=== PATIENT | female | born 1990 | race Caucasian/White ===

== ENCOUNTER 2017-07-30 21:06 | Inpatient (IN) | payer OTHER ==
[2017-07-30 21:50] VITALS: BMI 36.6
[2017-07-30] MEDS: Lactated Ringer's 1,000 ML IV SCH (22:25)
[2017-07-30] MEDS ORDERED: LR / Pitocin 40 units/1000 ml 40 UNITS/1,000 ML BAG IV SCH (22:30)
[2017-07-30] MEDS ORDERED: Acetaminophen/Codeine 30-300mg Tablet PO PRN (22:30)
[2017-07-30] MEDS ORDERED: Lidocaine 1% (PF) 30 ML VIAL SC PRN (22:30)
[2017-07-30] MEDS ORDERED: Ibuprofen 800 MG TAB PO PRN (22:30)
[2017-07-30] MEDS ORDERED: Misoprostol 200 MCG TAB RC PRN (22:30)
[2017-07-30 22:41] LABS: Hemoglobin 10.9 g/dL (12.0-16.0); Mean Corpuscular HGB CONC 33.4 g/dL (32.0-36.0); Mean Corpuscular Hemoglobin 30.9 pg (27.0-31.0); Mean Corpuscular Volume 92.7 fl (81.0-99.0); Platelet Count 305 thou/uL (130-400); Red Blood Cell (RBC) Count 3.52 mill/uL (4.20-5.40); White Blood Cell (WBC) Count 15.1 thou/uL (4.8-10.8)
[2017-07-30 23:47] LABS: HBSAg Index 0.17 S/CO (0-0.99); Hep B Surf Ag Non-Reactive S/CO (NonReactive); Syphilis Antibody Nonreactive (Nonreactive); Syphilis Antibody Index 0.04 S/CO (<1.00 Non-Reactive)
[2017-07-31] MEDS: LR 500 ML/Oxytocin 10 units 500 ML IV SCH ×3 (00:45→11:46)
[2017-07-31] MEDS: Misoprostol 100 MCG TAB VAG SCH ×3 (00:54→10:17)
[2017-07-31] MEDS: Lactated Ringer's 1,000 ML IV SCH ×2 (05:00→08:45)
[2017-07-31] MEDS ORDERED: Fentanyl 4 mcg/Marc 0.1% Cadd 100 ML ONE (08:23)
[2017-07-31] MEDS ORDERED: Ondansetron HCl/PF 4 MG/2 ML Vial ONE (08:32)
[2017-07-31] MEDS: Ondansetron HCl/PF 4 MG/2 ML Vial IVP PRN ×2 (08:36→15:00)
[2017-07-31] MEDS ORDERED: Fentanyl 100 MCG/2 ML VIAL ONE (08:36)
[2017-07-31] MEDS ORDERED: Bupivacaine 0.75% W/DEXTROSE 8.25% 2 ML AMP ONE (08:50)
[2017-07-31] MEDS: Fentanyl 4mcg/Marcaine 0.1% Cassette 100 ML EPIDURAL SCH ×2 (09:00→13:47)
[2017-07-31] MEDS ORDERED: Acetaminophen 325 MG TAB PO PRN (09:01)
[2017-07-31] MEDS ORDERED: Naloxone HCl 0.4 mg/ml Vial IVP PRN ×2 (09:01)
[2017-07-31] MEDS ORDERED: Eucerin (Mineral Oil/Petrolatum,White) 30 gm Jar TOP PRN (09:01)
[2017-07-31] MEDS ORDERED: diphenhydrAMINE 50 MG/ML VIAL IVP PRN (09:01)
[2017-07-31] MEDS ORDERED: Lactated Ringer's 500 ML IV PRN (09:01)
[2017-07-31] MEDS ORDERED: Fentanyl 100 MCG/2 ML VIAL I-THECAL ONE (09:01)
[2017-07-31] MEDS ORDERED: Promethazine HCl 25 MG/ML VIAL IM PRN (09:01)
[2017-07-31] MEDS ORDERED: ePHEDrine/0.9% NaCl/PF SYRINGE 50 mg/10 ml SLOW IVP PRN (09:01)
[2017-07-31] MEDS ORDERED: Bupivacaine 0.75% W/DEXTROSE 8.25% 2 ML AMP NERVE BLCK ONE (09:01)
[2017-07-31] MEDS ORDERED: Communication Order-Pharmacy FS SCH (09:15)
--- NOTE | 2017-07-31 09:18 | PDOC.LDHP ---
Labor and Delivery H&P Chief complaint: scheduled induction HPI: PT is a 27yo G1 @ 40.6 here for scheduled IOL for prolonged . Current gestational age (weeks): 40 Due date: 07/25/17 Dating criteria: last menstrual period, first trimester ultrasound Grav: 1 Para: 0 Current complications: none Past Medical History: none Current medications: pre-dee vitamins Previous surgical history: none Allergies/Adverse Reactions: Allergies Allergy/AdvReac Type Severity Reaction Status Date / Time No Known Allergies Allergy Unverified 07/30/17 21:53 Social history: none - Physical Exam Vital signs reviewed and normal: yes General: breathing through contractions Lungs: nonlabored breathing Abdomen: gravid Extremeties: no edema FHT: category 1 [place] contractions every: 3 - Vaginal Exam cm dilated: 3 Effacement: 75% Station: -1 - OB Labs Blood type: A RH: positive Antibody Screen: negative HIV: negative RPR: negative HEPSAg: negative 1 hour GCT: negative GBS: negative Rubella: immune - Assessment L&D Assessment: medically indicated induction - Plan Plan: admit to L&D, cervical ripening, labor augmentation if indicated, informed consent obtained, anesthesia consult for pain management -: A/P: IOL @ 40.6 for prolonged . AROM on admit exam this AM after pitocin for cervical ripening overnight. Pt has some concerns because her 3 sisters all had CS for failure to progress, discussed continued plan of care.
--- NOTE | 2017-07-31 13:11 | PDOC.LDPN ---
Labor & Delivery Progress Note - Subjective Subjective: comfortable - Objective Vital signs reviewed and normal: yes General: resting Dilation: 6 Effacement: 90% Station: -1 [place] contractions every: 2 AROM: clear fluid - Assessment (1) 40 weeks gestation of Code(s): Z3A.40 - 40 WEEKS GESTATION OF Current Visit: Yes Status : Acute Plan: continue plan of care
[2017-07-31] MEDS ORDERED: Ondansetron HCl/PF 4 MG/2 ML Vial IVP PRN ×2 (17:03→22:36)
--- NOTE | 2017-07-31 18:38 | PDOC.OPDEL ---
OB Operative/Delivery Note Delivery Dr/Surgeon: Vipin Pre-Delivery Diagnosis: medically indicated induction Procedure/Post Delivery Dx: spontaneous vaginal delivery Weeks gestation: 40 Anesthesia: epidural - Findings A Sex: female - 1 min: 9 - 5 min: 9 - Additional Findings/Plan Placenta delivered: manual removal (short cord w avulsion) Repaired Obstetrical Laceration: other (2nd degree and periurethral) Estimated blood loss: 300ml Post delivery plan: routine recovery
[2017-07-31] MEDS ORDERED: Acetaminophen/Codeine 30-300mg Tablet PO PRN ×2 (22:36)
[2017-07-31] MEDS ORDERED: Bisacodyl 10 MG SUPP PR PRN (22:36)
[2017-07-31] MEDS ORDERED: LR / Pitocin 40 units/1000 ml 1,000 ML IV SCH (22:36)
[2017-07-31] MEDS ORDERED: Milk Of Magnesia 30 ML UDCUP PO PRN (22:36)
[2017-07-31] MEDS ORDERED: Benzocaine/Menthol 20-0.5% 60 ML CAN TOP PRN (22:36)
[2017-07-31] MEDS ORDERED: diphenhydrAMINE 25 MG CAP PO PRN (22:36)
[2017-07-31] MEDS ORDERED: Preparation H Ointment 28 GM TUBE PR PRN (22:36)
[2017-07-31] MEDS ORDERED: Lanolin Ointment 7 GM TUBE TOP PRN (22:36)
[2017-07-31] MEDS ORDERED: Adacel (T-DAP) 0.5 ML VIAL IM ONE (23:00)
[2017-08-01] MEDS: Lactated Ringer's 1,000 ML IV SCH (01:03)
[2017-08-01] MEDS: Misoprostol 100 MCG TAB VAG SCH (01:03)
[2017-08-01] MEDS: LR 500 ML/Oxytocin 10 units 500 ML IV SCH (01:04)
[2017-08-01] MEDS: Ibuprofen 800 MG TAB PO SCH ×5 (01:04→21:45)
[2017-08-01] MEDS: Docusate Calcium (SURFAK) 240 MG CAP PO SCH ×4 (01:05→21:42)
[2017-08-01] MEDS ORDERED: Benzocaine/Menthol 20-0.5% 60 ML CAN TOP PRN (01:40)
[2017-08-01 05:46] LABS: Hemoglobin 9.6 g/dL (12.0-16.0); Mean Corpuscular HGB CONC 32.8 g/dL (32.0-36.0); Mean Corpuscular Hemoglobin 30.5 pg (27.0-31.0); Mean Platelet Volume 7.4 fL (7.4-10.4); Platelet Count 212 thou/uL (130-400); RBC Distribution Width 11.9 % (11.5-14.5); Red Blood Cell (RBC) Count 3.14 mill/uL (4.20-5.40); White Blood Cell (WBC) Count 15.1 thou/uL (4.8-10.8)
--- NOTE | 2017-08-01 08:41 | PDOC.PP ---
Post Progress Note Post Day #: 1 Subjective: no concerns, doing well PO intake tolerated: yes Flatus: yes Ambulation: yes Vital Signs (12 hours) Temp Pulse Resp BP Pulse Ox 08/01/17 05:25 98.7 F 100 14 105/58 L 08/01/17 00:46 99.2 F 109 H 14 08/01/17 00:00 99.2 F 109 H 14 118/61 07/31/17 23:05 98.4 F 110 H 16 116/66 07/31/17 22:05 98.5 F 104 H 18 117/65 98 Weight Weight 220 lb - Physical Examination General: NAD Respiratory: non-labored breathing Abdominal: lochia, no distention Fundus firm & at: below umb Extremities: negative homans (B) Skin: no rash Neurological: no gross focal deficits Psychiatric: A&Ox3, normal affect Result Diagrams: 08/01/17 05:15 Additional Labs: Post Labs Blood Type A POSITIVE 07/30/17 22:35 Hep Bs Antigen Non-Reactive S/CO (NonReactive) 07/30/17 22:35 (1) 40 weeks gestation of Code(s): Z3A.40 - 40 WEEKS GESTATION OF Status: Acute - Assessment/Plan PPD 1 sp IOL for 40.6 weeks doing well, no concerns.
[2017-08-01] MEDS: Ferrous Sulfate 325 MG TAB PO SCH ×2 (09:45→18:30)
[2017-08-02] MEDS: Ibuprofen 800 MG TAB PO SCH (06:32)
[2017-08-02] MEDS: Ferrous Sulfate 325 MG TAB PO SCH (09:34)
[2017-08-02] MEDS: Docusate Calcium (SURFAK) 240 MG CAP PO SCH (09:34)
[2017-08-02 10:20] VITALS: BP 108/72; TEMP 98
--- NOTE | 2017-08-02 12:14 | PDOC.PP ---
Post Progress Note Post Day #: 2 Subjective: doing well just sore PO intake tolerated: yes Flatus: yes Ambulation: yes Vital Signs (12 hours) Temp Pulse Resp BP 08/02/17 08:00 98 F 87 18 108/72 08/02/17 00:20 98.1 F 101 H 20 Weight Weight 220 lb - Physical Examination General: NAD Respiratory: non-labored breathing Abdominal: no distention Skin: no rash Neurological: no gross focal deficits Psychiatric: A&Ox3, normal affect Result Diagrams: 08/01/17 05:15 Additional Labs: Post Labs Blood Type A POSITIVE 07/30/17 22:35 Hep Bs Antigen Non-Reactive S/CO (NonReactive) 07/30/17 22:35 (1) 40 weeks gestation of Code(s): Z3A.40 - 40 WEEKS GESTATION OF Status: Acute - Assessment/Plan PPD2 doing well, plan for DC today, FU 6 weeks.
--- NOTE | 2017-08-05 13:25 | PQF ---
BELA KIMPALLAVI DO [id number] L&D- LDR3 [id number] CLINICAL DOCUMENTATION CLARIFICATION FORM: POST DISCHARGE Addendum to original discharge summary date: _no addendum needed, see op note__ Late entry note date: 08/09/17 DATE: 08/05/2017 ATTN: DR. PINO Please exercise your independent, professional judgment in responding to the clarification form. Clinical indicators are provided on the bottom of this form for your review Please check appropriate box(s): [ ] Diagnosis Option 1 RETAINED PLACENTA [ ] Diagnosis Option 2 [ x ] Other diagnosis normal vaginal delivery [ ] Unable to determine In addition, please specify: Present on Admission (POA): [ ] Yes [ ] No [ ] Unable to determine For continuity of documentation, please document condition throughout progress notes and discharge summary. Thank You. CLINICAL INDICATORS - SIGNS / SYMPTOMS / LABS: 07/31 OP REPORT - MANUAL REMOVAL OF PLACENTA RISK FACTORS: SHORT CORD AVULSION TREATMENTS: , mannual removal from vagina (This form is maintained as a part of the permanent medical record) 2014 [employer]. All Rights Reserved Sayra Can, KIERA, [email or web address] [phone] YOSI
== END 2017-08-02 13:45 | disposition home or self-care (01) | DRG 775 ==
LOC: L&D 21:06 → 3SW 07-31 22:23
PROVIDERS: ADMIT Obstetrics & Gynecology; ATTEND Obstetrics & Gynecology
PROC: 10E0XZZ Delivery of Products of Conception, External Approach (ICD-10-PCS; principal; 2017-07-31)
PROC: 0KQM0ZZ Repair Perineum Muscle, Open Approach (ICD-10-PCS; 2017-07-31)
PROC: 3E033VJ Introduction of Other Hormone into Peripheral Vein, Percutaneous Approach (ICD-10-PCS; 2017-07-31)
DX: O48.0 Post-term pregnancy (principal); O69.3XX0 Labor and delivery complicated by short cord, not applicable or unspecified; Z37.0 Single live birth; Z3A.40 40 weeks gestation of pregnancy; O70.1 Second degree perineal laceration during delivery
CPT/HCPCS: 36415; 51702; 85027; 86780; 86850; 86900; 86901; 87340; J2405; J3010; J3490; J7120